=== PATIENT | female | born 1965 | race Caucasian/White ===

== ENCOUNTER 2023-03-23 09:31 | Outpatient (RCR) | payer OTHER, SELFPAY ==
[2023-03-23 10:13] LABS: Glucose - Point of Care 218 mg/dl (70-99)
[2023-03-23 10:55] LABS: Glucose - Point of Care 131 mg/dl (70-99)
== END 2023-03-23 23:59 | disposition home or self-care (01) ==
LOC: CRHB 09:31
PROVIDERS: ATTENDING PHYSICIAN Internal Medicine Cardiovascular Disease; FAMILY PHYSICIAN Internal Medicine
DX: I25.10 Atherosclerotic heart disease of native coronary artery without angina pectoris (principal); Z95.5 Presence of coronary angioplasty implant and graft
CPT/HCPCS: 82962; 93797; 93798

== ENCOUNTER 2023-04-26 09:57 | Day surgery (SDC) | payer OTHER, SELFPAY ==
[2023-04-26] VITALS (11 sets, daily range): BP systolic 126–163; BP diastolic 55–85; BMI 36.5
[2023-04-26] MEDS: NSS 500 IV (10:37)
[2023-04-26 10:45] LABS: Hematocrit 35.1 % (37.0-47.0); Hemoglobin 11.6 g/dL (12.0-16.0); Mean Corpuscular Hgb 28.6 pg (27.0-31.0); Mean Corpuscular Volume 86.5 fL (81.0-99.0); Mean Platelet Volume 10.2 fL (7.4-10.4); Platelet Count 325 10^3/uL (130-400); Red Blood Cell Count 4.06 10^6/uL (4.20-5.40); Red Cell Dist. Width 15.4 % (11.5-14.5); White Blood Cell Count 14.5 10^3/uL (4.8-10.8)
[2023-04-26 10:58] LABS: Blood Urea Nitrogen 66 mg/dl (7-17); Calcium 8.8 mg/dl (8.4-10.2); Carbon Dioxide 24 mmol/L (22-30); Chloride 100 mmol/L (98-107); Estimated Creatinine Clearance 29 ml/min; Glucose 187 mg/dl (70-99); Potassium 4.7 mmol/L (3.5-5.1); Sodium 135 mmol/L (135-145); eGFR 21.14
[2023-04-26 11:05] LABS: INR 1.05; PT 13.5 Sec (11.4-14.6)
[2023-04-26 11:06] LABS: APTT 30.2 Sec (23.4-35.0)
--- NOTE | 2023-04-26 12:37 | W.SUR.PREOP ---
Pre-Operative Surgical Note
-
I have examined this patient prior to the performance of the scheduled procedure.
The patient's condition is unchanged from the time of the current History and
Physical and the patient is able to undergo the scheduled procedure.
[2023-04-26 14:57] LABS: Glucose - Point of Care 120 mg/dl (70-99)
--- NOTE | 2023-04-26 16:12 | OR.RPT ---
Operative Report
Operative Report
PROCEDURE DATE: 04/26/2023
Preoperative diagnosis: End-stage renal disease.
Postoperative diagnosis: Same
Procedure: Left upper extremity fistulogram, angioplasty of perianastomotic stenosis.
Surgeon: Tio
Junk Removal Specialist: None
Complications: None
Anesthesia: General LMA
Fluoroscopy:
5.6 min
2 mGy
0.43 Gy.cm2
Indications for procedure:
Left upper extremity fistula none maturing well. Nearing needs for dialysis. Perianastomotic stenosis on ultrasound suspected. Flow volume is very low. Brought for fistulogram. Risk/benefits/alternatives all fully discussed. Patient understood
all wish to proceed.
Description of procedure:
Patient was identified, brought to the operating room. Placed on the table in the supine position. After the adequate administration of anesthesia, the patient was prepped and draped in the standard surgical fashion. A standard preoperative
timeout was undertaken and everybody was in agreement with the plan.
The left upper extremity fistula outflow vein was punctured in the proximal forearm in a peripheral facing direction. This was done with a micropuncture kit under direct duplex ultrasound guidance. I then advanced a 4 Romanian sheath over a 0.035
inch wire. Angiogram demonstrated patent fistula near the sheath, but there appeared to be some either spasm around the sheath or stenosis. There was filling of branching, but I could not see the proximal aspect of the fistula outflow vein filled.
Based on my ultrasound I could tell that the wire had traversed into a branch. Therefore I then used a glide catheter and a Glidewire and then was able to gain wire access into the main outflow portion of the fistula. Once I did this I performed
a fistulogram that demonstrated patent proximal outflow. At the anastomosis there appeared to be a possible stenosis, but it was slightly difficult to tell based on the overlying of the artery and the outflow vein. I tried different obliquities
but I could not open it up well. But there was some irregularity in the contour suggesting significant stenosis. Therefore, I then used a flopping on hydrophilic wire to try to gain wire access into the proximal radial artery. However was unable
to do so, but I was able to gain wire access into the outflow radial artery. Once I did this I exchanged for a 0.014 inch wire. I then performed balloon angioplasty with a 3 mm angioplasty balloon of the perianastomotic area. However my balloon
kept watermelon seeding into the vein. I therefore then tried a 2.5 mm balloon. Was able to get this to profile. I then repeated with the 3 mm balloon and got a better inflation, but still some watermelon seeding. I then advanced my glide
catheter again and performed a completion fistulogram that demonstrated good result at the anastomosis. But there was some arterial spasm in the outflow radial artery. Localized nitroglycerin was given in the radial artery via the catheter.
Completion angiogram demonstrated good result with good resolution of the vasospasm. At this point I felt it might be worthwhile to try to balloon the stenosis/vasospasm in the vicinity of the sheath. I therefore then punctured a large branch in
the forearm under direct duplex ultrasound guidance (the branch was confluent with the main outflow of the cephalic vein). When I try to advance my micropuncture wire, it kept hitting the sheath. It then ended up pushing the sheath out actually
and it appeared that it might have been within the sheath. Therefore and now that the sheath popped out, I had to hold pressure on that site. I therefore then pulled out my micropuncture needle and wire as well and now hold pressure on both sides.
At this point I felt that there is nothing further really to do. I did not think that there was truly a stenosis around the sheath but rather vasospasm. In addition I have concerns about the viability of this fistula based on the small size of
the vein and the very small radial artery. Manual pressure was applied and hemostasis was achieved. The patient tolerated the procedure well.
== END 2023-04-26 16:36 | disposition home or self-care (01) ==
LOC: CATH 09:57
PROVIDERS: ATTENDING PHYSICIAN Surgery Vascular Surgery; FAMILY PHYSICIAN Internal Medicine
DX: I77.0 Arteriovenous fistula, acquired (principal); I12.9 Hypertensive chronic kidney disease with stage 1 through stage 4 chronic kidney disease, or unspecified chronic kidney disease; E11.22 Type 2 diabetes mellitus with diabetic chronic kidney disease; E11.65 Type 2 diabetes mellitus with hyperglycemia; N18.4 Chronic kidney disease, stage 4 (severe); Z79.4 Long term (current) use of insulin; Z79.85 Long-term (current) use of injectable non-insulin antidiabetic drugs; E78.5 Hyperlipidemia, unspecified; I25.10 Atherosclerotic heart disease of native coronary artery without angina pectoris; Z95.5 Presence of coronary angioplasty implant and graft; Z95.810 Presence of automatic (implantable) cardiac defibrillator; G47.33 Obstructive sleep apnea (adult) (pediatric); Z79.82 Long term (current) use of aspirin; Z79.02 Long term (current) use of antithrombotics/antiplatelets
CPT/HCPCS: 36902; C1894; C1769; C1725; 76937; 80048; 82962; 85027; 85610; 85730; 86850; 86900; 86901; Q9967

== ENCOUNTER → 2023-05-06 13:56 | Outpatient (REF) | payer OTHER, SELFPAY | LOC: HWWDC 13:56 | PROVIDERS: ATTENDING PHYSICIAN Obstetrics & Gynecology; FAMILY PHYSICIAN Internal Medicine | DX: Z12.31 Encounter for screening mammogram for malignant neoplasm of breast (principal) | CPT/HCPCS: 77063; 77067 ==

== ENCOUNTER → 2023-05-18 13:49 | Outpatient (REF) | payer OTHER, SELFPAY | LOC: RAD 13:49 | PROVIDERS: ATTENDING PHYSICIAN Surgery Vascular Surgery; FAMILY PHYSICIAN Internal Medicine | DX: Z01.818 Encounter for other preprocedural examination (principal) | CPT/HCPCS: 93986 ==

== ENCOUNTER 2023-05-19 08:25 | Day surgery (SDC) | payer OTHER, SELFPAY ==
[2023-05-19] VITALS (12 sets, daily range): BP systolic 130–155; BP diastolic 52–73; BMI 35.5
[2023-05-19 09:09] LABS: Glucose - Point of Care 226 mg/dl (70-99)
[2023-05-19 09:11] LABS: Hematocrit 31.8 % (37.0-47.0); Hemoglobin 10.6 g/dL (12.0-16.0); Mean Corp Hgb Conc. 33.3 g/dL (33.0-37.0); Mean Corpuscular Hgb 28.6 pg (27.0-31.0); Mean Corpuscular Volume 85.9 fL (81.0-99.0); Platelet Count 336 10^3/uL (130-400); Red Cell Dist. Width 17.3 % (11.5-14.5); White Blood Cell Count 14.2 10^3/uL (4.8-10.8)
[2023-05-19 09:23] LABS: INR 1.07; PT 13.9 Sec (11.4-14.6)
[2023-05-19] MEDS: BACTROBAN NASAL 1 GRAM NASAL (09:24)
[2023-05-19] MEDS: PERIDEX 0.12% ORAL RINSE 15 ML PO (09:25)
[2023-05-19] MEDS: NSS 500 IV (09:25)
[2023-05-19 09:46] LABS: Blood Urea Nitrogen 85 mg/dl (7-17); Calcium 8.6 mg/dl (8.4-10.2); Carbon Dioxide 25 mmol/L (22-30); Chloride 98 mmol/L (98-107); Estimated Creatinine Clearance 27 ml/min; Glucose 241 mg/dl (70-99); Potassium 4.6 mmol/L (3.5-5.1); Sodium 134 mmol/L (135-145); eGFR 19.22
[2023-05-19] MEDS: DILAUDID 0.25 MG IV ×2 (12:40→12:56)
--- NOTE | 2023-05-19 13:11 | OR.RPT ---
Operative Report
Operative Report
PROCEDURE DATE: 05/19/2023
Preoperative diagnosis: End-stage renal disease approaching hemodialysis
Postoperative diagnosis: Same
Procedure: Left upper extremity brachiocephalic arteriovenous fistula creation
Surgeon: Tio
Chemical Machine Tender: VERNA Morris, required for all aspects of the procedure including traction/countertraction, assistance with following of suture line, assistance with closure.
Complications: None
Anesthesia: General
Indications for procedure:
Need for hemodialysis access. Prior creation of left radiocephalic arteriovenous fistula. Unable to get that to mature. 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 Discussed upper arm AV access creation. Discussed with
her that she does have extensive subcutaneous fatty tissue (morbidly obese) and therefore increased risk of needing additional procedures. Patient understood all wish to proceed.
Description of procedure:
Patient was identified brought to the operating room placed on the table in supine position. After the adequate administration of anesthesia and perioperative antibiotics she was prepped and draped in the standard surgical fashion. A standard
preoperative timeout was undertaken and everybody was in agreement the plan. A transverse incision was made in the proximal volar aspect of the forearm just distal to the antecubital fossa. This was carried through skin subcutaneous tissue. The
antecubital extension of the cephalic vein was identified and carefully dissected away from surrounding structures and great care to avoid any injury to structures. Any branches were ligated between silk ties and then divided. As such I was able
to mobilize a suitable length of cephalic vein. Once I done this I then deepen my dissection in the medial aspect of the incision site through the fascial layer. The brachial artery was carefully identified and carefully dissected away from
surrounding structures take great care to avoid injury to structures. I passed a vessel loop around proximally. Distally I identified the brachial bifurcation and both radial and ulnar branches were controlled with Vesseloops after careful
circumferential dissection. Next I gave the patient 3000 units of intravenous heparin. I then ligated the cephalic vein distally in my field with a silk tie and a clip. I then transected it. I distended under heparinized saline. It distended
very well. I marked the anterior surface under distention to avoid any kinking or twisting. The vein was suitable size but just to be sure I ran a 3 mm dilator through which passed without any difficulty whatsoever. Next I tightened my double
looped Vesseloops on the artery proximally and distally. I then made an arteriotomy with a [place] blade, and extended using a Moses scissor. I spatulated the cephalic vein and sewed an end to side anastomosis using a running 6-0 Prolene suture.
Prior to completing and tying down my suture line I backbled and forebled the [place] vie[place] artery. Next I released my bulldog clamp on the vein and then released my Vesseloops on the artery. There was an excellent thrill in the fistula. There was a
good dopplerable radial artery signal at the wrist in the radial artery. At this point I was very satisfied. I irrigated. I achieved and confirmed full hemostasis. I then closed in layers using 3-0 Vicryl deep dermal layer followed by 4-0
Monocryl subcuticular stitch. Dermabond was applied. The patient tolerated the procedure well.
[2023-05-19] MEDS: TYLENOL 650 MG PO (13:26)
[2023-05-19] MEDS: ROXICODONE 5 MG PO (13:27)
== END 2023-05-19 14:20 | disposition home or self-care (01) ==
LOC: CATH 08:25
PROVIDERS: ATTENDING PHYSICIAN Surgery Vascular Surgery; FAMILY PHYSICIAN Internal Medicine
DX: I13.2 Hypertensive heart and chronic kidney disease with heart failure and with stage 5 chronic kidney disease, or end stage renal disease (principal); N18.6 End stage renal disease; Z95.820 Peripheral vascular angioplasty status with implants and grafts; I25.10 Atherosclerotic heart disease of native coronary artery without angina pectoris; E11.319 Type 2 diabetes mellitus with unspecified diabetic retinopathy without macular edema; E11.22 Type 2 diabetes mellitus with diabetic chronic kidney disease; I50.30 Unspecified diastolic (congestive) heart failure; Z79.02 Long term (current) use of antithrombotics/antiplatelets; Z79.82 Long term (current) use of aspirin; Z79.52 Long term (current) use of systemic steroids; Z79.4 Long term (current) use of insulin
CPT/HCPCS: 36821; 80048; 82962; 85027; 85610; 85730; 86850; 86900; 86901

== ENCOUNTER 2023-05-22 14:37 | Emergency (ER) | payer OTHER, SELFPAY ==
[2023-05-22 14:40] VITALS: BP 160/76
[2023-05-22] MEDS: ZOFRAN 4 MG IV (15:43)
[2023-05-22] MEDS: MORPHINE SULFATE 4 MG IV (15:43)
[2023-05-22 15:48] LABS: % Basophils 0.8 % (0-2); % Eosinophils 5.1 % (0-6); % Immature Granulocytes 0.5 % (0-0.5); % Lymphocytes 20.6 % (20.5-51.1); % Monocytes 7.1 % (1.7-9.3); % Neutrophils 65.9 % (42.2-75.2); Absolute Basophils 0.1 10^3/uL (0-0.2); Absolute Eosinophils 0.8 10^3/uL (0-0.7); Absolute Immature Granulocytes 0.1 10^3/uL (0-0.05); Absolute Lymphocytes 3.2 10^3/uL (1.2-3.4); Absolute Monocytes 1.1 10^3/uL (0.1-0.6); Absolute Neutrophils 10.2 10^3/uL (1.4-6.5); Hematocrit 32.9 % (37.0-47.0); Hemoglobin 11.1 g/dL (12.0-16.0); Mean Corp Hgb Conc. 33.7 g/dL (33.0-37.0); Mean Corpuscular Hgb 29.1 pg (27.0-31.0); Mean Corpuscular Volume 86.4 fL (81.0-99.0); Mean Platelet Volume 9.8 fL (7.4-10.4); Nucleated Red Blood Cells % 0 %; Platelet Count 341 10^3/uL (130-400); Red Blood Cell Count 3.81 10^6/uL (4.20-5.40); Red Cell Dist. Width 18.9 % (11.5-14.5); White Blood Cell Count 15.4 10^3/uL (4.8-10.8)
--- NOTE | 2023-05-22 15:51 | ED.GENMED ---
History of Present Illness
General
Chief Complaint: Post Operative Problem(s)
Source: patient and records
Exam Limitations: none
Time Seen by Provider: 05/22/23 15:07
Nursing documentation reviewed up to this point in time: agreed with
Travel History
Have you had any contact with someone who has COVID-19?: No
Do you have any symptoms of coronavirus? Fever > 100 degrees, chills, cough, shortness of breath, sore throat, loss of taste or smell, muscle aches, or headache?: No
History of Present Illness
History of Present Illness:
58-year-old female CKD nearing dialysis patient of the local nephrology practice she had a failed fistula in the right distal forearm repeat surgery in the mid forearm by Dr. Figueroa 2 days ago send postop pain at the surgical site numbness tingling
into her hand and wrist no fever no drainage, no arm weakness
Past History
Past History
ED Past Medical History: CHF, GERD, HTN, Hypercholesterolemia, IDDM, Seizures and Other
ED Past Surgical History: Cardiac, Orthopedic and Other
Social History
Tobacco: Non-smoker
Alcohol: None
Personal:
Living: with family ([place] [facility] for rehab)
Review of Systems
Review of Systems
All Other Systems: Not applicable
Constitutional: Denies fever or fatigue
EENT: Reports no symptoms
Respiratory: Reports no symptoms
Cardiac: Reports no symptoms
ABD/GI: Reports no symptoms
: Reports no symptoms
Musculoskeletal: Reports muscle stiffness
Neurological: Reports numbness
Phy Exam
Physical Exam
Physical Exam:
Physical Exam
General: no apparent distress, not acutely ill
Heart: s1/s2 regular rate and rhythm, no murmur. equal radial pulses.
Lungs: no acute respiratory distress. clear bilaterally
Neuro: alert and oriented. no focal neurological deficits
Skin: no rash
Psychiatric: well kept. interactive and cooperative
Extremities: Left forearm swelling ecchymosis in the proximal portion of the surgical site no thrill mild subjective numbness in the hand and wrist no coolness to the hand
Course
Orders/Labs/Results
Orders:
Orders
05/22/23 15:35
Morphine Sulfate 4 mg IV NOW STA
Ondansetron Injectable [Zofran] 4 mg IV NOW STA
05/22/23 15:41
Basic Metabolic Panel Urgent
05/22/23 15:42
Complete Blood Count/With Diff Urgent
05/22/23 16:12
Hemodialysis Graft US [US Hemodialysis Graft] Urgent
Comment:
Reason For Exam: painpain
Abnormal Lab Results
05/22/23 05/22/23
15:41 15:42
WBC 15.4 H 10^3/uL
(4.8-10.8)
RBC 3.81 L 10^6/uL
(4.20-5.40)
Hgb 11.1 L g/dL
(12.0-16.0)
Hct 32.9 L %
(37.0-47.0)
RDW 18.9 H %
(11.5-14.5)
Abs Immat Gran (auto) 0.1 H 10^3/uL
(0-0.05)
Absolute Neuts (auto) 10.2 H 10^3/uL
(1.4-6.5)
Absolute Monos (auto) 1.1 H 10^3/uL
(0.1-0.6)
Absolute Eos (auto) 0.8 H 10^3/uL
(0-0.7)
BUN 74 H mg/dl
(7-17)
Creatinine 2.5 H mg/dL
(0.6-1.0)
Glucose 60 L mg/dl
(70-99)
05/22/23 15:42
05/22/23 15:41
Vital Signs
Initial and Last Documented VS:
Initial Vital Signs
Temp Pulse Resp BP Pulse Ox
97.9 F 74 16 160/76 100
05/22/23 14:40 05/22/23 14:40 05/22/23 14:40 05/22/23 14:40 05/22/23 14:40
Last Documented Vital Signs
Temp Pulse Resp BP Pulse Ox
97.9 F 74 16 160/76 100
05/22/23 14:40 05/22/23 14:40 05/22/23 14:40 05/22/23 14:40 05/22/23 14:40
MDM/Problems Addressed
Differential Diagnosis Includes:
Postop pain clot still
MDM/Problems Addressed:
AV fistula
Chronic conditions affecting care: Kidney disease
Acute Exacerbation and/or Progression of Chronic Illness: Kidney disease
*Critical Care Note
Total Time (30-74mins, 75-104mins- exclusive of procedures): Not Applicable
Update Note
Update Note:
Pictures clinical sent to on-call vascular surgery
ED Attending Note
-
Portions of this chart may have been created with voice recognition software.� Occasional wrong word or��sound alike� substitutions may have occurred due to the inherent limitations of voice recognition software.
Discharge Plan
Departure
Patient Disposition: Other
Date of Disposition: 05/22/23
Time of Disposition: 16:47
Patient with high blood pressure during this ER visit?: No
Condition: Good
Covid-19: Not Applicable
Discharge Problem:
Post-operative pain
Prescriptions:
No Action
cetirizine 10 MG tablet
10 mg PO HS
atorvastatin 80 MG tablet
80 mg PO HS
aspirin 81 MG tablet,delayed release (DR/EC)
81 mg PO DAILY
Patient Comments:
clopidogrel 75 MG tablet
75 mg PO DAILY
metoclopramide HCl 5 MG tablet
5 mg PO BID@0730,1630
Patient Comments:
PRIOR TO A MEAL TWO TIMES A DAY
ergocalciferol (vitamin D2) 50,000 UNITS capsule
50,000 units PO RUSS
Cequa 1 EACH dropperette
1 drp BOTH EYES BID
Entresto 49-51 mg Tablet
1 tab PO BID
carvedilol 25 mg Tablet
25 mg PO BID
furosemide [Lasix] 20 mg Tablet
40 mg PO DAILY
insulin aspart U-100 [Novolog FlexPen U-100 Insulin] 100 unit/mL (3 mL) Insulin Pen
24 unit SC MEALS
sodium bicarbonate 650 MG tablet
650 mg PO BID Qty: 60 0RF
hydralazine 25 mg Tablet
25 mg PO TID
isosorbide mononitrate 60 mg Tablet Extended Release 24 Hr
60 mg PO HS
furosemide 20 mg Tablet
20 mg PO 1500
Rx Instructions:
3pm daily
ferrous sulfate 325 mg (65 mg iron) Tablet,Delayed Release (Dr/Ec)
325 mg PO DAILY
ezetimibe 10 mg Tablet
10 mg PO DAILY
insulin glargine [Lantus Solostar U-100 Insulin] 100 unit/mL (3 mL) insulin pen
74 unit SC HS
Patient Comments:
pt took half does last night, 37 units
Rx Instructions:
37 units past night per instructions
Probiotic Blend 2 billion cell-50 mg Capsule
1 cap PO DAILY
Mounjaro 7.5 mg/0.5 mL Pen Injector
7.5 mg SC WE
valacyclovir 500 mg Tablet
500 mg PO TID
prednisolone
1 drp RIGHT EYE TID
oxycodone 5 mg tablet
5 mg PO Q8H PRN (Reason: moderate pain) Qty: 5 0RF
Referrals:
Maxime Santo MD [Family Provider] -
Interventions
Interventions:
*Risk Screen - Suicide Last Done: 05/22/23 14:43
*General Assessment Last Done: 05/22/23 14:43
*Neglect/Abuse Screening Last Done: 05/22/23 14:43
ED-Skin Assessment Last Done: 05/22/23 15:59
[2023-05-22 16:00] LABS: Blood Urea Nitrogen 74 mg/dl (7-17); Calcium 8.4 mg/dl (8.4-10.2); Carbon Dioxide 26 mmol/L (22-30); Chloride 100 mmol/L (98-107); Glucose 60 mg/dl (70-99); Sodium 136 mmol/L (135-145); eGFR 22.02
[2023-05-22 18:12] VITALS: BP 133/48
== END 2023-05-22 18:12 | disposition home or self-care (01) ==
LOC: EMR 14:37
PROVIDERS: EMERGENCY PHYSICIAN Emergency Medicine; FAMILY PHYSICIAN Internal Medicine
DX: G89.18 Other acute postprocedural pain (principal); I13.2 Hypertensive heart and chronic kidney disease with heart failure and with stage 5 chronic kidney disease, or end stage renal disease; I50.9 Heart failure, unspecified; E11.22 Type 2 diabetes mellitus with diabetic chronic kidney disease; N18.6 End stage renal disease; G40.909 Epilepsy, unspecified, not intractable, without status epilepticus; E78.00 Pure hypercholesterolemia, unspecified; K21.9 Gastro-esophageal reflux disease without esophagitis; Z99.2 Dependence on renal dialysis
CPT/HCPCS: 99284; 96374; 96375; 80048; 85025; 93990

== ENCOUNTER 2023-06-23 17:16 | Emergency (ER) | payer OTHER, SELFPAY ==
[2023-06-23 17:22] VITALS: BP 133/81; BMI 36.4
--- NOTE | 2023-06-23 18:37 | ED.GENMED ---
History of Present Illness
General
Chief Complaint: Cough
Time Seen by Provider: 06/23/23 18:37
Travel History
Have you had any contact with someone who has COVID-19?: No
Do you have any symptoms of coronavirus? Fever > 100 degrees, chills, cough, shortness of breath, sore throat, loss of taste or smell, muscle aches, or headache?: No
History of Present Illness
History of Present Illness:
HPI: Patient presents with a week worth of coughing with some degree of shortness of breath she was concerned because she has a history of congestive heart failure. She increased her Lasix dosing from 40 mg a.m. and 20 mg p.m. to 40 mg twice daily.
This has not helped much. She has not noticed much of a change in her weight. She uses CPAP at night. She feels that she has 'cold' contributing to symptoms
EXAM:
GENERAL: Appears somewhat chronically ill but in no distress, elevated BMI
HEENT: Moist oral mucosa
CARDIOVASCULAR: No murmurs, normal heart rate, regular rhythm, No chest wall tenderness
PULMONARY: No respiratory distress, breath sounds are clear and equal
ABDOMEN: Soft with no peritoneal signs, no tenderness
NEUROLOGIC: Excellent strength all extremities, no coordination deficits
PSYCHIATRIC: Appropriate mental status, normal insight and judgement
EXTREMITIES: Nontender, trace bilateral lower extremity edema, moves all extremities equally
SKIN: No rash, no lesions
TIME OF INITIAL ENCOUNTER: 6:40 PM
NUMBER AND COMPLEXITY OF PROBLEMS ADDRESSED AT THE ENCOUNTER
� Chronic conditions affecting care: CHF, CAD, high blood pressure, hyperlipidemia, has had low blood pressure, has ICD
� Acute Exacerbation and/or Progression of Chronic Illness: This is an acute problem
� Differential Diagnosis includes: Viral syndrome, exacerbation of CHF, reactive airway disease, ACS unlike
AMOUNT AND/OR COMPLEXITY OF DATA TO BE REVIEWED AND ANALYZED
� I performed an independent evaluation of and my interpretation is:
EKG: Sinus 80, IVCD
CT:
X-rays: I personally reviewed x-ray�device noted in the right anterior thorax, no significant pulmonary vascular congestion, cardiomegaly noted
Laboratory Studies: White count slightly elevated 11.3, hemoglobin is 10.4 which is near baseline, BUN 76, creatinine 2.9 which is slightly worse than prior, proBNP 1020 which is also near baseline
Other:
� Review of other/old records: I reviewed old records, the patient has history of ESRD approaching dialysis and had a fistula created this past April
� Clinical information was obtained by an independent historian: I spoke to her roommate that was present on reassessment�he feels that she is doing fairly well and does not need to be kept in the hospital
� Prescriptions/Medications Considered but not given: Considered antibiotics but patient declines
� Further testing considered but not performed:
RISK OF COMPLICATIONS AND/OR MORBIDITY OR MORTALITY OF PATIENT MANAGEMENT
� Social determinants of health affecting care: Lives at home
� Discussion with other providers:
� Escalation of care including admission/observation vs risk of discharge considered: Will try an IV dose of Lasix as well as a DuoNeb. Symptoms may be multifactorial. On reassessment at 9 PM, the patient does not feel that
better. She perseverates over the fact that she has a cough and cold symptoms. She thinks she may have gone into worsening heart failure however her BNP is near baseline, her lungs sound clear on exam and there is no significant lower extremity
edema. She already has oxygen at home. She has a prominent cough at times while in the ED. she says the cough is keeping her up at night. Will try Tessalon Perles prescription and albuterol for nebulizer that she has at home.
Past History
Past History
ED Past Medical History: CHF, GERD, HTN, Hypercholesterolemia, IDDM, Seizures and Other
ED Past Surgical History: Cardiac, Orthopedic and Other
Social History
Tobacco: Non-smoker
Alcohol: None
Personal:
Living: with family ([facility] for rehab)
Phy Exam
Physical Exam
Physical Exam:
See HPI
Course
Orders/Labs/Results
Orders:
Orders
06/23/23 17:26
EKG [Electrocardiogram (*1)] Urgent
Reason for Study: Chest Pain
06/23/23 17:27
EKG- Treatment ONCE
06/23/23 18:44
Furosemide [Lasix] 40 mg IV NOW STA
Ipratropium/Albuterol Sulfate [Duoneb] 3 ml INH R NOW ONE
CR Chest - 2 Views Urgent
Comment:
Reason For Exam: sob
06/23/23 19:08
COVID-19 Antigen Urgent
Source: Nasal Swab
Influenza A+B Rapid Molecular Urgent
DAISY Source: Nasal Swab
Specimen Description:
06/23/23 20:16
Complete Blood Count/With Diff Urgent
Comprehensive Metabolic Panel Urgent
Magnesium Urgent
NT-proBNP Urgent
Troponin I Urgent
Abnormal Lab Results
06/23/23
20:16
WBC 11.3 H 10^3/uL
(4.8-10.8)
RBC 3.46 L 10^6/uL
(4.20-5.40)
Hgb 10.4 L g/dL
(12.0-16.0)
Hct 30.7 L %
(37.0-47.0)
RDW 20.4 H %
(11.5-14.5)
Absolute Neuts (auto) 8.2 H 10^3/uL
(1.4-6.5)
Absolute Monos (auto) 0.7 H 10^3/uL
(0.1-0.6)
Lymphocytes % 16.3 L %
(20.5-51.1)
BUN 76 H mg/dl
(7-17)
Creatinine 2.9 H mg/dL
(0.6-1.0)
06/23/23 20:16
06/23/23 20:16
Vital Signs
Initial and Last Documented VS:
Initial Vital Signs
Temp Pulse Resp BP Pulse Ox
99.0 F 78 16 133/81 96
06/23/23 17:22 06/23/23 17:22 06/23/23 17:22 06/23/23 17:22 06/23/23 17:22
Last Documented Vital Signs
Temp Pulse Resp BP Pulse Ox
99.0 F 78 25 121/58 95
06/23/23 17:22 06/23/23 21:00 06/23/23 20:45 06/23/23 20:00 06/23/23 20:15
*Critical Care Note
Total Time (30-74mins, 75-104mins- exclusive of procedures): Not Applicable
ED Attending Note
-
Portions of this chart may have been created with voice recognition software.� Occasional wrong word or��sound alike� substitutions may have occurred due to the inherent limitations of voice recognition software.
Discharge Plan
Departure
Patient Disposition: Home (Routine Discharge)
Date of Disposition: 06/23/23
Time of Disposition: 21:17
Patient with high blood pressure during this ER visit?: Yes
Discharge Problem:
Shortness of breath
Instructions: Acute Bronchitis, Adult (DC), Heart Failure, Adult (DC), Cough, Adult (DC)
Prescriptions:
New
benzonatate 200 mg capsule
200 mg PO TID PRN (Reason: Cough) Qty: 10 0RF
albuterol sulfate 2.5 mg /3 mL (0.083 %) solution for nebulization
2.5 mg inhalation Q4H PRN (Reason: shortness of breath or wheezing) Qty: 90 0RF
No Action
cetirizine 10 MG tablet
10 mg PO HS
atorvastatin 80 MG tablet
80 mg PO HS
aspirin 81 MG tablet,delayed release (DR/EC)
81 mg PO DAILY
Patient Comments:
clopidogrel 75 MG tablet
75 mg PO DAILY
metoclopramide HCl 5 MG tablet
5 mg PO BID@0730,1630
Patient Comments:
PRIOR TO A MEAL TWO TIMES A DAY
ergocalciferol (vitamin D2) 50,000 UNITS capsule
50,000 units PO RUSS
Cequa 1 EACH dropperette
1 drp BOTH EYES BID
Entresto 49-51 mg Tablet
1 tab PO BID
carvedilol 25 mg Tablet
25 mg PO BID
furosemide [Lasix] 20 mg Tablet
40 mg PO DAILY
insulin aspart U-100 [Novolog FlexPen U-100 Insulin] 100 unit/mL (3 mL) Insulin Pen
24 unit SC MEALS
sodium bicarbonate 650 MG tablet
650 mg PO BID Qty: 60 0RF
hydralazine 25 mg Tablet
25 mg PO TID
isosorbide mononitrate 60 mg Tablet Extended Release 24 Hr
60 mg PO HS
furosemide 20 mg Tablet
20 mg PO 1500
Rx Instructions:
3pm daily
ferrous sulfate 325 mg (65 mg iron) Tablet,Delayed Release (Dr/Ec)
325 mg PO DAILY
ezetimibe 10 mg Tablet
10 mg PO DAILY
insulin glargine [Lantus Solostar U-100 Insulin] 100 unit/mL (3 mL) insulin pen
74 unit SC HS
Patient Comments:
pt took half does last night, 37 units
Rx Instructions:
37 units past night per instructions
Probiotic Blend 2 billion cell-50 mg Capsule
1 cap PO DAILY
Mounjaro 7.5 mg/0.5 mL Pen Injector
7.5 mg SC WE
valacyclovir 500 mg Tablet
500 mg PO TID
prednisolone
1 drp RIGHT EYE TID
oxycodone 5 mg tablet
5 mg PO Q8H PRN (Reason: moderate pain) Qty: 5 0RF
oxycodone 5 mg capsule
5 mg PO Q8H PRN (Reason: Pain) Qty: 10 0RF
Referrals:
Maxime Santo MD [Family Provider] -
Merrill Connor MD [Active] - Follow up in 2-3 days
Activity Restrictions/Additional Instructions:
We gave an additional IV dose of 40 mg of Lasix tonight. Your BNP level, the test that we commonly use for evaluating for heart failure) is very similar to prior. I sent prescriptions to your pharmacy for Tessalon Perles and for albuterol
nebulized treatments. Return here if worse. I also recommend you follow-up with Dr. Connor..
Interventions
Interventions:
*Risk Screen - Suicide Last Done: 06/23/23 17:22
*General Assessment Last Done: 06/23/23 21:30
*Neglect/Abuse Screening Last Done: 06/23/23 17:22
ED- Fall Risk Assessment Last Done: 06/23/23 21:30
*ED COVID-19 Vaccine History Last Done: 06/23/23 17:22
*Nursing Disposition Last Done: 06/23/23 21:30
ED- Pulmonary Assessment Last Done: 06/23/23 19:07
Discharge Date and Time
Discharge Date/Time: 06/23/23 21:35
Print Language: ROMANSH
[2023-06-23 19:07] VITALS: BMI 38.4
[2023-06-23 19:43] VITALS: BP 155/51
[2023-06-23] MEDS: DUONEB 3 ML INH (19:44)
[2023-06-23 20:00] VITALS: BP 121/58
[2023-06-23 20:00] LABS: COVID-19 Antigen Negative (Negative)
[2023-06-23] MEDS: LASIX 40 MG IV (20:17)
[2023-06-23 20:25] LABS: % Basophils 0.6 % (0-2); % Immature Granulocytes 0.4 % (0-0.5); % Lymphocytes 16.3 % (20.5-51.1); % Monocytes 6.1 % (1.7-9.3); % Neutrophils 72.6 % (42.2-75.2); Absolute Basophils 0.1 10^3/uL (0-0.2); Absolute Eosinophils 0.5 10^3/uL (0-0.7); Absolute Lymphocytes 1.8 10^3/uL (1.2-3.4); Absolute Monocytes 0.7 10^3/uL (0.1-0.6); Absolute Neutrophils 8.2 10^3/uL (1.4-6.5); Hematocrit 30.7 % (37.0-47.0); Hemoglobin 10.4 g/dL (12.0-16.0); Mean Corp Hgb Conc. 33.9 g/dL (33.0-37.0); Mean Corpuscular Hgb 30.1 pg (27.0-31.0); Mean Corpuscular Volume 88.7 fL (81.0-99.0); Mean Platelet Volume 9.7 fL (7.4-10.4); Nucleated Red Blood Cells % 0 %; Platelet Count 280 10^3/uL (130-400); Red Blood Cell Count 3.46 10^6/uL (4.20-5.40); Red Cell Dist. Width 20.4 % (11.5-14.5); White Blood Cell Count 11.3 10^3/uL (4.8-10.8)
[2023-06-23 20:44] LABS: ALT (SGPT) 14 U/L (0-35); AST (SGOT) 22 U/L (14-36); Albumin 4.6 g/dl (3.5-5.0); Alkaline Phosphatase 81 U/L (38-126); Blood Urea Nitrogen 76 mg/dl (7-17); Calcium 8.6 mg/dl (8.4-10.2); Carbon Dioxide 23 mmol/L (22-30); Chloride 104 mmol/L (98-107); Estimated Creatinine Clearance 26 ml/min; Glucose 75 mg/dl (70-99); Potassium 4.2 mmol/L (3.5-5.1); Sodium 138 mmol/L (135-145); Total Bilirubin 0.5 mg/dl (0.2-1.3); Total Protein 6.9 g/dl (6.3-8.2); eGFR 18.43
[2023-06-23 20:48] LABS: NT-proBNP 1020 pg/ml
== END 2023-06-23 21:35 | disposition home or self-care (01) ==
LOC: EMR 17:16
PROVIDERS: EMERGENCY PHYSICIAN Emergency Medicine; FAMILY PHYSICIAN Internal Medicine
DX: R06.02 Shortness of breath (principal); R05.9 Cough, unspecified; R60.0 Localized edema; Z11.52 Encounter for screening for COVID-19; I13.2 Hypertensive heart and chronic kidney disease with heart failure and with stage 5 chronic kidney disease, or end stage renal disease; I50.9 Heart failure, unspecified; E11.22 Type 2 diabetes mellitus with diabetic chronic kidney disease; N18.6 End stage renal disease; I25.10 Atherosclerotic heart disease of native coronary artery without angina pectoris; E78.00 Pure hypercholesterolemia, unspecified; K21.9 Gastro-esophageal reflux disease without esophagitis; R56.9 Unspecified convulsions; Z95.810 Presence of automatic (implantable) cardiac defibrillator; Z79.899 Other long term (current) drug therapy; Z79.82 Long term (current) use of aspirin; Z79.4 Long term (current) use of insulin; Z88.1 Allergy status to other antibiotic agents; Z88.8 Allergy status to other drugs, medicaments and biological substances
CPT/HCPCS: 99284; 96374; 94640; 71046; 80053; 83735; 83880; 84484; 85025; 87502; 87811; 93005

== ENCOUNTER → 2023-06-29 14:53 | Outpatient (REF) | payer OTHER, SELFPAY | LOC: RAD 14:53 | PROVIDERS: ATTENDING PHYSICIAN Physician Assistant; FAMILY PHYSICIAN Internal Medicine | DX: I77.0 Arteriovenous fistula, acquired (principal) | CPT/HCPCS: 93990 ==

== ENCOUNTER → 2023-07-15 13:36 | Outpatient (REF) | payer OTHER, SELFPAY | LOC: RAD 13:36 | PROVIDERS: ATTENDING PHYSICIAN Internal Medicine | DX: M25.562 Pain in left knee (principal) | CPT/HCPCS: 73564; 73610 ==

== ENCOUNTER → 2023-07-22 13:49 | Outpatient (REF) | payer OTHER, SELFPAY | LOC: HWRCS 13:49 | PROVIDERS: ATTENDING PHYSICIAN Nurse Practitioner Gerontology; FAMILY PHYSICIAN Internal Medicine | DX: R06.02 Shortness of breath (principal); I25.10 Atherosclerotic heart disease of native coronary artery without angina pectoris; I25.5 Ischemic cardiomyopathy; I27.20 Pulmonary hypertension, unspecified | CPT/HCPCS: 93306 ==

== ENCOUNTER → 2023-07-23 11:45 | Outpatient (REF) | payer OTHER, SELFPAY | LOC: RAD 11:45 | PROVIDERS: ATTENDING PHYSICIAN Internal Medicine | DX: L03.818 Cellulitis of other sites (principal) | CPT/HCPCS: 73630 ==

== ENCOUNTER 2023-08-18 05:53 | Day surgery (SDC) | payer OTHER, SELFPAY ==
--- NOTE | 2023-08-12 12:13 | PTCARENOTE ---
Patients 410 Ecg abnormal- reviewed by Dr. Frederick- no additional interventions required
[2023-08-18] VITALS (12 sets, daily range): BP systolic 90–146; BP diastolic 33–68; BMI 34.8
[2023-08-18] MEDS: BACTROBAN NASAL 1 GRAM NASAL (06:43)
[2023-08-18] MEDS: PERIDEX 0.12% ORAL RINSE 15 ML PO (06:44)
[2023-08-18 07:11] LABS: Hematocrit 35.1 % (37.0-47.0); Hemoglobin 11.5 g/dL (12.0-16.0); Mean Corp Hgb Conc. 32.8 g/dL (33.0-37.0); Mean Corpuscular Hgb 29.8 pg (27.0-31.0); Mean Corpuscular Volume 90.9 fL (81.0-99.0); Mean Platelet Volume 10.7 fL (7.4-10.4); Platelet Count 265 10^3/uL (130-400); Red Blood Cell Count 3.86 10^6/uL (4.20-5.40); Red Cell Dist. Width 16.4 % (11.5-14.5); White Blood Cell Count 10.8 10^3/uL (4.8-10.8)
[2023-08-18 07:19] LABS: Glucose - Point of Care 203 mg/dl (70-99)
[2023-08-18 07:25] LABS: INR 1.09; PT 13.9 Sec (11.4-14.6)
[2023-08-18 07:26] LABS: APTT 30.8 Sec (23.4-35.0)
[2023-08-18] MEDS: NOVOLOG vial 2 UNITS SC ×2 (07:29→11:03)
[2023-08-18 07:31] LABS: Blood Urea Nitrogen 65 mg/dl (7-17); Carbon Dioxide 26 mmol/L (22-30); Chloride 99 mmol/L (98-107); Glucose 190 mg/dl (70-99); Potassium 4.7 mmol/L (3.5-5.1); Sodium 136 mmol/L (135-145); eGFR 20.08
--- NOTE | 2023-08-18 10:50 | OR.RPT ---
Operative Report
Operative Report
PROCEDURE DATE: 08/18/2023
Preoperative diagnosis: 1. End-stage renal disease, approaching hemodialysis.
2. Status post left brachiocephalic arteriovenous fistula creation, poorly maturing fistula.
Postoperative diagnosis: Same
Procedure:
1. Exploration of the cephalic vein outflow of left upper extremity AV fistula.
2. Left upper extremity upper arm AV graft with Blythe Propaten 7 mm x 4 mm tapered graft.
Surgeon: Tio
Medical Receptionist Assistant: Ayana GILLESPIE, required for all aspects of procedure including assistance with traction/countertraction, following of suture line, assistance with closure.
Complications: None
Anesthesia: General
Indications for procedure:
Patient with end-stage renal disease, approaching hemodialysis. Radiocephalic fistula unable to get to mature. Subsequent left upper extremity brachiocephalic arteriovenous fistula created. However the depth appears to be significant in the
fistula. In addition the proximal outflow vein had excellent flow volumes, but they dropped off more distally. Therefore patient brought for revision with possible superficialization of the fistula, possible graft placement.
Risk/benefits/alternatives all fully discussed. Patient understood all wish to proceed.
Description of procedure:
Patient was identified brought to the operating room placed on the table in supine position. After the adequate administration of anesthesia she was prepped and draped in the standard surgical fashion. A standard preoperative timeout was
undertaken and everybody was in agreement the plan. I made a longitudinal incision in the distal upper arm overlying the outflow cephalic vein just proximal of the antecubital fossa. I had examined this with an ultrasound in the operating room and
it demonstrated that the vein was patent and looked well but there was a connection/branch to the basilic vein quite proximally. Therefore I dissected through the subcutaneous tissue to the level of the cephalic vein and identified that confluence
with the basilic vein. Next I dissected the cephalic vein more distally (more centrally) within my incision site. I noted significant tortuosity. And now the vein actually became severely stenotic. It was very small. It was thin-walled as well.
I felt that this was not usable. I therefore then ligated the vein here between silk ties and then divided it. Now I was hoping to try to use the basilic vein since the fistula now continued continuously with the basilic vein. Before making a
longer incision to expose the basilic vein and superficial lysed, I looked with an ultrasound and there was an area just proximal to the antecubital fossa where the basilic vein had significantly narrowed. In addition I noted the depth was very
deep and her arm was morbidly obese. And therefore I was concerned about wound infection issues, as well as concern about the stenotic area basilic vein. At this point I felt the safest thing and most efficient thing would be creation of a graft.
I felt that I could use the outflow vein that I had exposed in the distal upper arm. There is an excellent thrill in that. That would be my inflow. I now made a longitudinal incision in the medial proximal upper arm near the axilla. This was
carried through the skin subcutaneous tissue. There is significant subcutaneous tissue depth. I finally was able to identify the deep vein. I was able to carefully circumferentially dissected away from surrounding structures to great care to
avoid any injury to structures. I passed a vessel loop around proximally distally. Now I used a Bernabe tunneler to create a subcutaneous tunnel between the 2 incision sites. I then passed a Blythe Propaten tapered 7 mm x 4 mm graft and passed it
through the tunnel. (Passed with the 4 mm and at the arterial/proximal anastomotic site). I gave the patient 5000 units of intravenous heparin. I then clamped the proximal outflow vein (just distal to the anastomosis which I do not exposed). I
passed a vessel loop distally which I double looped and tightened. I then made a venotomy with an 11 blade and extended using a Moses scissor. I then beveled the 4 mm end of the graft and sewed an end to side running anastomosis using a Blythe CV 6
suture. I completed and tied down my suture line. Next I released flow in the la posta vein. There is good thrill into the graft. The graft distally had been clamped. At this point I ligated the basilic vein distal to the anastomosis so as to
prevent competitive flow. This was done with a silk tie.
I now turned my attention to the proximal upper arm incision where the 7 mm the graft had been tunneled through. I now made a venotomy after tightening my double looped Vesseloops on the deep vein. This was done with an 11 blade and extended using
a Moses scissor. I then beveled the 7 mm end of the graft and sewed an end to side anastomosis using a running Blythe CV 6 suture. Prior to completing and tying down my suture line I backbled the la posta system, I flushed out the graft. I then
completed and tied down my suture line. Next I released flow in the la posta system and released my graft clamp. There is a good thrill into the fistula into the graft at the arterial/anastomotic side. There is an excellent Doppler signal in the
outflow vein distal to the anastomosis. At this point I was very satisfied. I then meticulously achieved hemostasis. Protamine was given to reverse the heparin. I then confirmed hemostasis. We then irrigated and closed in layers using 3-0
Vicryl followed by 4 Monocryl subcuticular stitch. Dermabond was applied. The patient tolerated procedure well. Of note she had a palpable left radial pulse upon completion.
[2023-08-18 10:52] LABS: Glucose - Point of Care 199 mg/dl (70-99)
[2023-08-18] MEDS: DILAUDID 0.25 MG IV ×2 (11:03→11:21)
[2023-08-18] MEDS: NSS 500 IV (11:16)
[2023-08-18] MEDS: NOVOLOG FLEXPEN-MODERATE RESISTANCE 2 UNITS SC (14:31)
[2023-08-18] MEDS: APRESOLINE 25 MG PO ×2 (15:55→21:25)
[2023-08-18] MEDS: LASIX 20 MG PO (15:55)
[2023-08-18 16:55] LABS: Glucose - Point of Care 300 mg/dl (70-99)
[2023-08-18] MEDS: NOVOLOG FLEXPEN-MODERATE RESISTANCE 7 UNITS SC (17:09)
[2023-08-18] MEDS: ROXICODONE 5 MG PO (18:32)
[2023-08-18] MEDS: FLOVENT 44 MCG INHALER 2 PUFF INH (19:23)
[2023-08-18] MEDS: ENTRESTO 49 MG/51 MG 1 TAB PO (20:48)
[2023-08-18] MEDS: RESTASIS 0.05% OPHTHALMIC EMULSION 1 DROPS BOTH EYES (20:49)
[2023-08-18] MEDS: COREG 25 MG PO (20:49)
[2023-08-18] MEDS: SODIUM BICARBONATE 650 MG PO (20:49)
[2023-08-18] MEDS: TYLENOL 650 MG PO (20:55)
[2023-08-18 21:06] LABS: Glucose - Point of Care 367 mg/dl (70-99)
[2023-08-18] MEDS: PRED FORTE 1% EYE DROPS 1 DROP RIGHT EYE (21:24)
[2023-08-18] MEDS: LIPITOR 80 MG PO (21:24)
[2023-08-18] MEDS: IMDUR (EXTENDED RELEASE) 60 MG PO (21:25)
[2023-08-18] MEDS: ZYRTEC 10 MG PO (21:26)
[2023-08-18] MEDS: LANTUS 0.739999999999999991 UNITS SC (21:27)
[2023-08-19] MEDS: ROXICODONE 5 MG PO ×2 (02:34→10:30)
[2023-08-19 03:20] VITALS: BP 159/70
[2023-08-19] MEDS: TYLENOL 650 MG PO (06:01)
[2023-08-19 06:18] LABS: Hematocrit 34.4 % (37.0-47.0); Hemoglobin 11.2 g/dL (12.0-16.0); Mean Corp Hgb Conc. 32.6 g/dL (33.0-37.0); Mean Corpuscular Hgb 29.8 pg (27.0-31.0); Mean Corpuscular Volume 91.5 fL (81.0-99.0); Platelet Count 241 10^3/uL (130-400); Red Blood Cell Count 3.76 10^6/uL (4.20-5.40); Red Cell Dist. Width 15.9 % (11.5-14.5); White Blood Cell Count 17.2 10^3/uL (4.8-10.8)
[2023-08-19 06:46] LABS: Blood Urea Nitrogen 66 mg/dl (7-17); Calcium 8.7 mg/dl (8.4-10.2); Carbon Dioxide 22 mmol/L (22-30); Chloride 99 mmol/L (98-107); Estimated Creatinine Clearance 31 ml/min; Glucose 262 mg/dl (70-99); Potassium 4.9 mmol/L (3.5-5.1); Sodium 134 mmol/L (135-145); eGFR 24.34
--- NOTE | 2023-08-19 07:29 | W.PN.VS ---
Addendum entered and electronically signed by Justen iKnsey MD 08/19/23 07:44:
Seen and examined with VERNA Piña. Agree with findings as noted below. No significant new complaints except incisional soreness. Left upper extremity is soft. Ecchymotic at the tunnel site. However no hematoma noted. Incisions both clean dry
and intact. Good thrill through graft best palpated near antecubital fossa. Hand is pink and warm and well-perfused. Plan/as discussed and noted below.
Original Note:
Today's Communication / Plan
-
Seen and assessed with Dr. Kinsey
Assessment/Plan
-
POD 1 left upper extremity fistula creation with graft
Plan:
-Discharge today
Subjective Data
-
Date of Service: August 19, 2023
Pt seen at bedside this am with Dr Kinsey. Pt complains of moderate discomfort at incisional site/tunnel site. No events overnight
Objective Data
-
Vital Signs
Temp Pulse Resp BP Pulse Ox
97.2 F 88 18 159/70 97
08/19/23 03:20 08/19/23 03:20 08/19/23 03:20 08/19/23 03:20 08/19/23 03:20
Intake and Output
08/18/23 08/19/23 08/20/23
06:59 06:59 06:59
Intake Total 2270 / 2270
Balance 2270 / 2270
Intake:
Oral fluids 2120 / 2120
IV fluids (Total) 150 / 150
Nss 500 ml @ 40 mls/hr IV . 150 / 150
[id number] NANDA Rx#:[id number]
Other:
Number of approximated MODERATE 3
amounts of urine
Lab Results
08/19/23 05:53
08/19/23 05:53
Calcium 8.7 mg/dl (8.4-10.2) 08/19/23 05:53
Physical Exam
-
AAOx3
No tachypnea
No tachycardia
Left upper extremity soft, ecchymotic, incisional sites clean dry and intact and well-approximated
Left hand warm, + radial pulse
+ Thrill
[2023-08-19] MEDS: ENTRESTO 49 MG/51 MG 1 TAB PO (07:42)
[2023-08-19] MEDS: MIRALAX 17 GRAMS PO (07:42)
[2023-08-19] MEDS: ZETIA 10 MG PO (07:42)
[2023-08-19] MEDS: LASIX 40 MG PO (07:42)
[2023-08-19] MEDS: ZYLOPRIM 50 MG PO (07:42)
[2023-08-19 07:43] VITALS: BP 93/62
[2023-08-19] MEDS: RESTASIS 0.05% OPHTHALMIC EMULSION 1 DROPS BOTH EYES (07:43)
[2023-08-19] MEDS: APRESOLINE 25 MG PO (07:43)
[2023-08-19] MEDS: PLAVIX 75 MG PO (07:43)
[2023-08-19] MEDS: SODIUM BICARBONATE 650 MG PO (07:43)
[2023-08-19] MEDS: PRED FORTE 1% EYE DROPS 1 DROP RIGHT EYE (07:43)
[2023-08-19] MEDS: VISBIOME 1 CAP PO (07:43)
[2023-08-19] MEDS: COREG 25 MG PO (07:43)
[2023-08-19] MEDS: ASPIR LOW (ENTERIC COATED) 81 MG PO (07:43)
[2023-08-19] MEDS: VALTREX 500 MG PO (07:43)
[2023-08-19] MEDS: REGLAN 5 MG PO (07:43)
[2023-08-19] MEDS: HEPARIN 5000 UNITS SC (07:44)
[2023-08-19 07:45] VITALS: BMI 34.3
[2023-08-19 07:50] LABS: Glucose - Point of Care 246 mg/dl (70-99)
[2023-08-19] MEDS: NOVOLOG FLEXPEN-HIGH RESISTANCE 4 UNITS SC (07:54)
[2023-08-19] MEDS: FLOVENT 44 MCG INHALER 2 PUFF INH (07:58)
--- NOTE | 2023-08-19 10:20 | W.[place]-PDMP ---
[place]-PDMP
-
Checked the [place]- Prescription Drug Monitoring Program website, no red flags identified; safe to proceed with prescription.
--- NOTE | 2023-08-19 10:21 | W.DS.TRANS ---
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
-
Discharge Instructions:
Discharge Diagnosis/Procedures AV fistula creation with graft
Diet As tolerated
Activity No strenuous activity
Driving Restrictions No driving for 1 week
Bathing Restrictions OK to Shower
Instructions:
Stand-Alone Forms: DC Instr - Vascular OR
Changes to Home Medications: Yes
Discharge Medications:
DC Medications w/original date entered in [employer]
cetirizine 10 mg tablet 10 mg PO HS Allergies 07/02/14
aspirin 81 mg tablet,delayed release 81 mg PO DAILY Blood clot prevention/tx 07/17/16
atorvastatin 80 mg tablet 80 mg PO HS High cholesterol 07/17/16
clopidogrel 75 mg tablet 75 mg PO DAILY Blood clot prevention/tx 04/26/20
ergocalciferol (vitamin D2) 1,250 mcg (50,000 unit) capsule 50,000 units PO RUSS Supplement 04/26/20
metoclopramide HCl 5 mg tablet 5 mg PO BID@0730,1630 Gastrointestinal issue 04/26/20
cyclosporine 0.09 % eye drops in a dropperette (Cequa) 1 drp BOTH EYES BID Eye condition 08/26/21
carvedilol 25 mg tablet 25 mg PO BID Blood pressure 09/23/21
sacubitril 49 mg-valsartan 51 mg tablet (Entresto) 1 tab PO BID Heart Failure 09/23/21
furosemide 20 mg tablet (Lasix) 40 mg PO DAILY Fluid retention/Swelling 12/05/21
insulin aspart U-100 100 unit/mL (3 mL) subcutaneous pen (Novolog FlexPen U-100 Insulin aspart) 24 unit SC MEALS Diabetes 12/05/21
sodium bicarbonate 650 mg tablet 650 mg PO BID Gastrointestinal issue #60 tabs 12/11/21
L.acidophil-L.casei-B.bifid-B.longum-FOS 2 billion cell-50 mg capsule (Probiotic Blend) 1 cap PO DAILY probiotic 03/18/23
ezetimibe 10 mg tablet 10 mg PO DAILY High Cholesterol 03/18/23
ferrous sulfate 325 mg (65 mg iron) tablet,delayed release 325 mg PO 1500 Supplement 03/18/23
furosemide 20 mg tablet 20 mg PO 1500 Fluid Retention/Swelling 03/18/23
hydralazine 25 mg tablet 25 mg PO TID Blood Pressure 03/18/23
insulin glargine 100 unit/mL (3 mL) subcutaneous pen (Lantus Solostar U-100 Insulin) 74 unit SC HS Diabetes 03/18/23
isosorbide mononitrate 60 mg tablet,extended release 24 hr 60 mg PO HS Heart Disease/Condition 03/18/23
tirzepatide 7.5 mg/0.5 mL subcutaneous pen injector (Mounjaro) 7.5 mg SC TH Diabetes 04/23/23
valacyclovir 500 mg tablet 500 mg PO BID viral infection 05/10/23
allopurinol 100 mg tablet 50 mg PO DAILY Gout 08/11/23
budesonide 180 mcg/actuation breath activated powder inhaler (Pulmicort Flexhaler) 1 inh inhalation BID Lung/Breathing Issues 08/11/23
polyethylene glycol 3350 17 gram oral powder packet (Miralax) 17 g PO DAILY Constipation 08/11/23
prednisolone acetate (PF) 1 % eye drops,suspension 1 drp RIGHT EYE BID Eye Condition 08/11/23
oxycodone 5 mg tablet 5 mg PO Q4HPRN PRN moderate pain 7 days #42 tabs 08/19/23
Home Medication Changes
Oxycodone added for pain management x 7 days
Pending Results: No
--- NOTE | 2023-08-19 10:45 | CM ---
Met with pt at bedside
Pt lives with roommates in a ranch style home
Independent with ADL's
DME - rolling walker, cane - not using; oxygen, CPAP - uses at bedtime
SNF - [facility] in past
HH - [facility] in past
Has ride at d/c
PCP - Dr Calli Santo
Pharm - [facility]
Plan - anticipate home no needs
[2023-08-19 11:39] VITALS: BP 130/61
[2023-08-19] MEDS: NOVOLOG FLEXPEN-HIGH RESISTANCE SC (11:39)
== END 2023-08-19 12:06 | disposition home or self-care (01) ==
LOC: CATH 05:53
PROVIDERS: Nurse Practitioner; ATTENDING PHYSICIAN Surgery Vascular Surgery; FAMILY PHYSICIAN Internal Medicine; OTHER PHYSICIAN Internal Medicine Cardiovascular Disease
DX: T82.898A Other specified complication of vascular prosthetic devices, implants and grafts, initial encounter (principal); Y83.2 Surgical operation with anastomosis, bypass or graft as the cause of abnormal reaction of the patient, or of later complication, without mention of misadventure at the time of the procedure; I13.11 Hypertensive heart and chronic kidney disease without heart failure, with stage 5 chronic kidney disease, or end stage renal disease; E11.22 Type 2 diabetes mellitus with diabetic chronic kidney disease; N18.6 End stage renal disease; Z79.4 Long term (current) use of insulin; Z79.02 Long term (current) use of antithrombotics/antiplatelets; Z79.82 Long term (current) use of aspirin
CPT/HCPCS: 36832; 80048; 82962; 85027; 85610; 85730; 86850; 86900; 86901; 94640; 94660; C1768

== ENCOUNTER → 2023-09-13 08:45 | Outpatient (REF) | payer OTHER, SELFPAY | LOC: RAD 08:45 | PROVIDERS: ATTENDING PHYSICIAN Surgery Vascular Surgery; FAMILY PHYSICIAN Internal Medicine | DX: I73.9 Peripheral vascular disease, unspecified (principal); I77.0 Arteriovenous fistula, acquired | CPT/HCPCS: 93922; 93925; 93990 ==

== ENCOUNTER 2024-01-26 06:14 | Day surgery (SDC) | payer OTHER, SELFPAY ==
--- NOTE | 2024-01-21 16:03 | PTCARENOTE ---
Pt last took 10mg Mounjaro SC on 01/[address] Whitley notified of this, no action needed. Surgery ok to proceed as scheduled.
[2024-01-26] MEDS: ALCAINE 0.5% EYE DROPS 1 DROP OPHTH (06:23)
[2024-01-26] MEDS: MYDRIACYL 1 DROP OPHTH (06:23)
[2024-01-26] MEDS: CYCLOGYL 1% EYE DROPS 1 DROP OPHTH (06:24)
[2024-01-26] MEDS: NEO-SYNEPHRINE 2.5% OPH SOL. 1 DROP OPHTH (06:24)
[2024-01-26] MEDS: POLYTRIM OPHTHALMIC SOLUTION 1 DROP OPHTH (06:24)
[2024-01-26] MEDS: ACUVAIL 1 DROPS OPHTH (06:24)
[2024-01-26] MEDS: PRED FORTE 1% EYE DROPS 1 DROP OPHTH (06:24)
[2024-01-26] MEDS: AKTEN OPHTHALMIC GEL 1 ML OPHTH (06:25)
[2024-01-26 06:27] VITALS: BMI 33.1
[2024-01-26 06:28] VITALS: BMI 33.1
[2024-01-26 06:29] VITALS: BP 116/52
[2024-01-26 06:36] LABS: Glucose - Point of Care 211 mg/dl (70-99)
[2024-01-26 07:59] VITALS: BP 112/51
[2024-01-26 08:20] VITALS: BP 106/46
== END 2024-01-26 08:30 | disposition home or self-care (01) ==
LOC: SDS 06:14
PROVIDERS: ATTENDING PHYSICIAN Ophthalmology
DX: H25.811 Combined forms of age-related cataract, right eye (principal)
CPT/HCPCS: 66984; 82962

== ENCOUNTER 2024-02-03 06:43 | Day surgery (SDC) | payer OTHER, SELFPAY ==
[2024-02-03 13:50] VITALS: BMI 32.8
[2024-02-03 13:51] VITALS: BMI 32.8
[2024-02-03] MEDS: MYDRIACYL 1 DROP OPHTH (13:54)
[2024-02-03] MEDS: NEO-SYNEPHRINE 2.5% OPH SOL. 1 DROP OPHTH (13:54)
[2024-02-03] MEDS: PRED FORTE 1% EYE DROPS 1 DROP OPHTH (13:54)
[2024-02-03] MEDS: POLYTRIM OPHTHALMIC SOLUTION 1 DROP OPHTH (13:54)
[2024-02-03] MEDS: ALCAINE 0.5% EYE DROPS 1 DROP OPHTH (13:54)
[2024-02-03] MEDS: ACUVAIL 1 DROPS OPHTH (13:55)
[2024-02-03] MEDS: CYCLOGYL 1% EYE DROPS 1 DROP OPHTH (13:55)
[2024-02-03] MEDS: AKTEN OPHTHALMIC GEL 1 ML OPHTH (13:55)
[2024-02-03 14:00] VITALS: BP 129/52
[2024-02-03 14:09] LABS: Glucose - Point of Care 197 mg/dl (70-99)
[2024-02-03 15:32] VITALS: BP 122/75
[2024-02-03 15:45] VITALS: BP 125/52
== END 2024-02-03 15:45 | disposition home or self-care (01) ==
LOC: SDS 06:43
PROVIDERS: ATTENDING PHYSICIAN Ophthalmology
DX: H25.812 Combined forms of age-related cataract, left eye (principal)
CPT/HCPCS: 66984; 82962

== ENCOUNTER → 2024-03-31 12:59 | Outpatient (REF) | payer OTHER, SELFPAY | LOC: RAD 12:59 | PROVIDERS: ATTENDING PHYSICIAN Surgery Vascular Surgery; FAMILY PHYSICIAN Internal Medicine | DX: I73.9 Peripheral vascular disease, unspecified (principal) | CPT/HCPCS: 93922; 93925 ==

== ENCOUNTER 2024-04-25 03:53 | Emergency (ER) | payer OTHER, SELFPAY ==
[2024-04-25 03:56] VITALS: BP 144/65
[2024-04-25 04:22] LABS: % Basophils 0.5 % (0-2); % Eosinophils 2.7 % (0-6); % Immature Granulocytes 0.5 % (0-0.5); % Lymphocytes 10.6 % (20.5-51.1); % Neutrophils 79.7 % (42.2-75.2); Absolute Basophils 0.1 10^3/uL (0-0.2); Absolute Eosinophils 0.5 10^3/uL (0-0.7); Absolute Immature Granulocytes 0.1 10^3/uL (0-0.05); Absolute Lymphocytes 1.8 10^3/uL (1.2-3.4); Absolute Neutrophils 13.8 10^3/uL (1.4-6.5); Hematocrit 33.2 % (37.0-47.0); Hemoglobin 10.8 g/dL (12.0-16.0); Mean Corp Hgb Conc. 32.5 g/dL (33.0-37.0); Mean Corpuscular Hgb 29.3 pg (27.0-31.0); Mean Corpuscular Volume 90.2 fL (81.0-99.0); Mean Platelet Volume 9.9 fL (7.4-10.4); Nucleated Red Blood Cells % 0.2 %; Platelet Count 318 10^3/uL (130-400); Red Blood Cell Count 3.68 10^6/uL (4.20-5.40); Red Cell Dist. Width 17.1 % (11.5-14.5); White Blood Cell Count 17.3 10^3/uL (4.8-10.8)
[2024-04-25 04:47] LABS: ALT (SGPT) 14 U/L (0-35); AST (SGOT) 20 U/L (14-36); Albumin 4.6 g/dl (3.5-5.0); Alkaline Phosphatase 125 U/L (38-126); Blood Urea Nitrogen 82 mg/dl (7-17); Calcium 9.2 mg/dl (8.4-10.2); Carbon Dioxide 20 mmol/L (22-30); Chloride 99 mmol/L (98-107); Glucose 157 mg/dl (70-99); Potassium 4.2 mmol/L (3.5-5.1); Sodium 137 mmol/L (135-145); Total Bilirubin 0.7 mg/dl (0.2-1.3); Total Protein 6.9 g/dl (6.3-8.2); eGFR 19.22
[2024-04-25 08:22] VITALS: BP 134/70
--- NOTE | 2024-04-25 09:04 | ED.GENMED ---
ED Provider Triage
<Martinez Barnes PA-C - Last Filed: 04/25/24 09:05>
-
Patient seen by provider in Triage?: Seen in Triage
Attestation: A medical screening examination has been initiated by a qualified medical provider. Based on the assessment performed at this time, it has been determined that an emergent medical condition may exist and the patient has been informed
that further medical evaluation and possible additional diagnostic testing may be needed. Time of exam 0900
HPI: 58-year-old female presents with right flank pain for the past 1 to 2 days. Began as bilateral low back pain but now in the right flank. No radiation of symptoms into the legs. Denies any dysuria or hematuria. Has history of CKD. No fevers
or chills, did have some nausea vomiting with pain increased today. Initial triage labs show leukocytosis as well as CKD, comparable to past labs. Will need urinalysis and CT to rule out renal stone
GENERAL: Alert , in no apparent distress
EYE: No visual abnormalities.
NECK: Trachea midline
ENT: No visible abnormalities.
LUNGS: No acute respiratory distress
NEUROLOGICAL: Alert and oriented
SKIN: Skin intact. No visible changes.
MUSCULOSKELETAL: Moving extremities normally
PSYCH: Normal and appropriate interaction.
This is a medical evaluation conducted in person to initiate diagnostic evaluation and provide initial therapeutics. Please see further documentation by the treating clinician.
History of Present Illness
<Martinez Barnes PA-C - Last Filed: 04/25/24 09:05>
General
Chief Complaint: Abdominal Pain
Time Seen by Provider: 04/25/24 09:15
<Chayito Avery PA-C - Last Filed: 04/25/24 12:54>
General
Source: patient
Exam Limitations: none
History of Present Illness
History of Present Illness:
58yoF with a history of CHF, coronary artery disease, insulin-dependent diabetes, hypertension, and CKD presenting for evaluation of back pain. She reports right lower back pain that began 4 days ago. Pain was initially dull but pain started to
worsen and become sharp around 7pm last night. Pain is worse with movements. She has not taken anything OTC for her symptoms. She denies any trauma or inciting incident. Pain is non-radiating. She is worried about her kidneys due to her history of
CKD. She denies any weakness or pain in the extremities. No fevers, chills, dysuria, hematuria, nausea, vomiting, saddle anesthesia, abdominal pain, chest pain, shortness of breath.
Past History
<Martinez Barnes PA-C - Last Filed: 04/25/24 09:05>
Past History
ED Past Medical History: CHF, GERD, HTN, Hypercholesterolemia, IDDM, Seizures and Other
ED Past Surgical History: Cardiac, Orthopedic and Other
Social History
Tobacco: Non-smoker
Alcohol: None
Personal:
Living: with family ([facility] for rehab)
Phy Exam
<Chayito Avery PA-C - Last Filed: 04/25/24 12:54>
General Physical Exam
General Presentation: well appearing and no apparent distress
General age: appears stated age
General Skin: warm and dry
General Habitus: normal
General Mental: alert
ENT Exam
ENT Exam: normocephalic
Cardiovascular Exam
Cardiovascular Exam: regular rate/rhythm
Pulmonary Exam
Pulmonary Exam: lungs clear, no respiratory distress, no rales, no crackles and no rhonchi
Gastrointestinal Exam
Gastrointestinal Exam: non tender, soft, non distended and no cva tenderness
Neurological Exam
Neurological Exam: alert
[place] Coma Scale
Eye Opening: Spontaneous
Verbal Response: Oriented
Motor Response: Obeys Commands
GCS Total Score: 15
Musculoskeletal Exam
Musculoskeletal Exam: other (No reproducible tenderness in the lumbar region. No skin changes. )
Skin Exam
Skin Exam: normal color and warm/dry
Psychiatric Exam
Psychiatric Exam: normal mood/affect
Course
<Martinez Barnes PA-C - Last Filed: 04/25/24 09:05>
Orders/Labs/Results
Orders:
Orders
04/25/24 04:10
CMP [Comprehensive Metabolic Panel] Urgent
Complete Blood Count/With Diff Urgent
04/25/24 08:22
Electrocardiogram (*1) Urgent
Reason for Study: Abdominal Pain
CT Abd/pel Without Iv Or Oral Urgent
Comment:
Reason For Exam: right sied pain, crf
EKG- Treatment ONCE
04/25/24 09:16
Urinalysis Reflex To Culture Urgent
Date Specimen was Collected: 04/25/24
Time Specimen was Collected: 09:15
Urine Microscopic Reflex Cult Urgent
Urine Culture Urgent
DAISY Source: U
Specimen Description:
Date Specimen was Collected: 04/25/24
Time Specimen was Collected: 09:15
04/25/24 09:47
Acetaminophen [Tylenol] 1,000 mg PO NOW STA
Lidocaine [Lidocaine 4% Patch] 1 patch TOPICAL ONCE ONE
Apply Lidocaine patch(s) to:: R lower back
Abnormal Lab Results
04/25/24 04/25/24
04:10 09:16
WBC 17.3 H 10^3/uL
(4.8-10.8)
RBC 3.68 L 10^6/uL
(4.20-5.40)
Hgb 10.8 L g/dL
(12.0-16.0)
Hct 33.2 L %
(37.0-47.0)
MCHC 32.5 L g/dL
(33.0-37.0)
RDW 17.1 H %
(11.5-14.5)
Abs Immat Gran (auto) 0.1 H 10^3/uL
(0-0.05)
Absolute Neuts (auto) 13.8 H 10^3/uL
(1.4-6.5)
Absolute Monos (auto) 1.0 H 10^3/uL
(0.1-0.6)
Neutrophils % 79.7 H %
(42.2-75.2)
Lymphocytes % 10.6 L %
(20.5-51.1)
Carbon Dioxide 20 L mmol/L
(22-30)
BUN 82 H mg/dl
(7-17)
Creatinine 2.8 H mg/dL
(0.6-1.0)
Glucose 157 H mg/dl
(70-99)
Leukocyte Esterase Rfl 2+ A
(Negative)
Urine WBC (Reflex) 11-15 A /HPF
(0-5)
Urine Bacteria (Reflex) Few A
(Negative)
Urine Glucose 3+ A
(Negative)
04/25/24 04:10
04/25/24 04:10
Vital Signs
Initial and Last Documented VS:
Initial Vital Signs
Temp Pulse Resp BP Pulse Ox
98.3 F 84 22 144/65 97
04/25/24 03:56 04/25/24 03:56 04/25/24 03:56 04/25/24 03:56 04/25/24 03:56
Last Documented Vital Signs
Temp Pulse Resp BP Pulse Ox
97.9 F 81 18 139/64 98
04/25/24 10:14 04/25/24 10:14 04/25/24 10:14 04/25/24 10:14 04/25/24 10:14
Leonellt;Chayito Avery PA-C - Last Filed: 04/25/24 12:54>
Orders/Labs/Results
Orders:
Orders
04/25/24 04:10
CMP [Comprehensive Metabolic Panel] Urgent
Complete Blood Count/With Diff Urgent
04/25/24 08:22
Electrocardiogram (*1) Urgent
Reason for Study: Abdominal Pain
CT Abd/pel Without Iv Or Oral Urgent
Comment:
Reason For Exam: right sied pain, crf
EKG- Treatment ONCE
04/25/24 09:16
Urinalysis Reflex To Culture Urgent
Date Specimen was Collected: 04/25/24
Time Specimen was Collected: 09:15
Urine Microscopic Reflex Cult Urgent
Urine Culture Urgent
DAISY Source: U
Specimen Description:
Date Specimen was Collected: 04/25/24
Time Specimen was Collected: 09:15
04/25/24 09:47
Acetaminophen [Tylenol] 1,000 mg PO NOW STA
Lidocaine [Lidocaine 4% Patch] 1 patch TOPICAL ONCE ONE
Apply Lidocaine patch(s) to:: R lower back
Abnormal Lab Results
04/25/24 04/25/24
04:10 09:16
WBC 17.3 H 10^3/uL
(4.8-10.8)
RBC 3.68 L 10^6/uL
(4.20-5.40)
Hgb 10.8 L g/dL
(12.0-16.0)
Hct 33.2 L %
(37.0-47.0)
MCHC 32.5 L g/dL
(33.0-37.0)
RDW 17.1 H %
(11.5-14.5)
Abs Immat Gran (auto) 0.1 H 10^3/uL
(0-0.05)
Absolute Neuts (auto) 13.8 H 10^3/uL
(1.4-6.5)
Absolute Monos (auto) 1.0 H 10^3/uL
(0.1-0.6)
Neutrophils % 79.7 H %
(42.2-75.2)
Lymphocytes % 10.6 L %
(20.5-51.1)
Carbon Dioxide 20 L mmol/L
(22-30)
BUN 82 H mg/dl
(7-17)
Creatinine 2.8 H mg/dL
(0.6-1.0)
Glucose 157 H mg/dl
(70-99)
Leukocyte Esterase Rfl 2+ A
(Negative)
Urine WBC (Reflex) 11-15 A /HPF
(0-5)
Urine Bacteria (Reflex) Few A
(Negative)
Urine Glucose 3+ A
(Negative)
04/25/24 04:10
04/25/24 04:10
Vital Signs
Initial and Last Documented VS:
Initial Vital Signs
Temp Pulse Resp BP Pulse Ox
98.3 F 84 22 144/65 97
04/25/24 03:56 04/25/24 03:56 04/25/24 03:56 04/25/24 03:56 04/25/24 03:56
Last Documented Vital Signs
Temp Pulse Resp BP Pulse Ox
97.9 F 81 18 139/64 98
04/25/24 10:14 04/25/24 10:14 04/25/24 10:14 04/25/24 10:14 04/25/24 10:14
Leonellt;Chayito Avery PA-C - Last Filed: 04/25/24 12:54>
MDM/Problems Addressed
Differential Diagnosis Includes:
58yoF here with R lower back pain x several days. Worsening since last night. No reported trauma. Worse with movement. She is mildly hypertensive with otherwise normal vitals. She is well appearing in no distress. No abdominal or CVA tenderness on
exam. Differential diagnosis includes but is not limited to: musculoskeletal, UTI, kidney stone
Initial ED plan: Labs obtained in triage. WBC 17.3 which appears to be chronic. Creatinine 2.8 which is stable from outpatient labs last week per patient. UA and CT abdomen pending. Tylenol and lidocaine patch ordered for pain.
<Chayito Avery PA-C - Last Filed: 04/25/24 12:54>
*Critical Care Note
Total Time (30-74mins, 75-104mins- exclusive of procedures): Not Applicable
<Chayito Avery PA-C - Last Filed: 04/25/24 12:54>
Update Note
Update Note:
UA with 2+ leukocytes although there are some squamous epithelial cells present suggesting contaminated sample. CT is negative for acute findings. No indication for hospitalization at this time. Upon further questioning, patient does report urinary
frequency for the past few days. Will cover with Keflex for possible UTI although pain seems more muscular based on history. Supportive care discussed. Advised close f/u with PCP and ED return precautions discussed. Patient in agreement with plan
and was discharged in stable condition.
ED Attending Note
<Martinez Barnes PA-C - Last Filed: 04/25/24 09:05>
-
Portions of this chart may have been created with voice recognition software.� Occasional wrong word or��sound alike� substitutions may have occurred due to the inherent limitations of voice recognition software.
Discharge Plan
Departure
Patient Disposition: Home (Routine Discharge)
Date of Disposition: 04/25/24
Time of Disposition: 10:37
Patient with high blood pressure during this ER visit?: Yes
Discharge Problem:
Acute right-sided low back pain, Urinary tract infection
Instructions: Back Pain
Prescriptions:
New
cephalexin 500 mg capsule
500 mg PO BID 7 Days Qty: 14 0RF
No Action
cetirizine 10 MG tablet
10 mg PO HS
atorvastatin 80 MG tablet
80 mg PO HS
aspirin 81 MG tablet,delayed release (DR/EC)
81 mg PO DAILY
Patient Comments:
clopidogrel 75 MG tablet
75 mg PO DAILY
metoclopramide HCl 5 MG tablet
5 mg PO BID@0730,1630
Patient Comments:
PRIOR TO A MEAL TWO TIMES A DAY
ergocalciferol (vitamin D2) 50,000 UNITS capsule
50,000 units PO RUSS
Cequa 1 EACH dropperette
1 drp BOTH EYES BID
Entresto 49-51 mg Tablet
1 tab PO BID
carvedilol 25 mg Tablet
25 mg PO BID
furosemide [Lasix] 20 mg Tablet
40 mg PO DAILY
insulin aspart U-100 [Novolog FlexPen U-100 Insulin] 100 unit/mL (3 mL) Insulin Pen
24 unit SC MEALS
sodium bicarbonate 650 MG tablet
650 mg PO BID Qty: 60 0RF
hydralazine 25 mg Tablet
25 mg PO TID
isosorbide mononitrate 60 mg Tablet Extended Release 24 Hr
60 mg PO HS
furosemide 20 mg Tablet
20 mg PO 1500
Rx Instructions:
3pm daily
ferrous sulfate 325 mg (65 mg iron) Tablet,Delayed Release (Dr/Ec)
325 mg PO MOWEFR
ezetimibe 10 mg Tablet
10 mg PO DAILY
insulin glargine [Lantus Solostar U-100 Insulin] 100 unit/mL (3 mL) insulin pen
74 unit SC HS
Patient Comments:
pt took half does last night, 37 units
Rx Instructions:
60 units past night per instructions
Probiotic Blend 2 billion cell-50 mg Capsule
1 cap PO DAILY
valacyclovir 500 mg Tablet
500 mg PO DAILY
allopurinol 100 mg Tablet
100 mg PO DAILY
prednisolone acetate (PF) 1 % Drops,Suspension
1 drp BOTH EYES BID
polyethylene glycol 3350 [Miralax] 17 gram Powder In Packet
17 g PO PRN PRN (Reason: constipation)
dapagliflozin propanediol [Farxiga] 10 mg Tablet
10 mg PO DAILY
Mounjaro 10 mg/0.5 mL Pen Injector
10 mg SC TH
tobramycin 0.3 % Drops
1 drp LEFT EYE TID
ketorolac 0.4 % Drops
1 drp OPHTHALMIC (EYE) QID
carboxymethylcellulose sodium [Refresh] 1 % Drops, Liquid Gel
1 drp OPHTHALMIC (EYE) BID
Referrals:
Maxime Snato MD [Family Provider] -
Activity Restrictions/Additional Instructions:
Take antibiotics as prescribed. Take Tylenol as needed for pain and apply heat to affected area.
Please follow-up with your family doctor. Return to the ER with any worsening symptoms or fevers.
Interventions
Interventions:
*Risk Screen - Suicide Last Done: 04/25/24 03:56
*General Assessment Last Done: 04/25/24 10:13
*Neglect/Abuse Screening Last Done: 04/25/24 03:56
ED- Fall Risk Assessment Last Done: 04/25/24 10:15
*Nursing Disposition Last Done: 04/25/24 10:57
XQ-Mqllmz-Qdiugnpfhe Assessment Last Done: 04/25/24 10:15
Discharge Date and Time
Discharge Date/Time: 04/25/24 11:01
Print Language: INDONESIAN
[2024-04-25 09:29] LABS: Urine Albumin Negative (Neg - Trace); Urine Bilirubin Negative (Negative); Urine Character Clear (Clear); Urine Color Yellow; Urine Glucose 3+ (Negative); Urine Ketone Negative (Negative); Urine Leukocyte 2+ (Negative); Urine Nitrite Negative (Negative); Urine Occult Blood Negative (Negative); Urine Urobilinogen Negative (Neg - 1+)
[2024-04-25 09:37] LABS: Urine Squamous Cell 21-25 /LPF (Few)
[2024-04-25 09:38] LABS: Urine Bacteria Few (Negative); Urine Hyaline Cast 0-2 /LPF (0-2); Urine Red Blood Cell 0-2 /HPF (0-2)
[2024-04-25 10:12] VITALS: BMI 32.3
[2024-04-25 10:14] VITALS: BP 139/64
[2024-04-25] MEDS: LIDOCAINE 4% PATCH 1 PATCH TOPICAL (10:16)
[2024-04-25] MEDS: TYLENOL 1000 MG PO (10:16)
== END 2024-04-25 11:01 | disposition home or self-care (01) ==
LOC: EMR 03:53
PROVIDERS: Emergency Medicine; Physician Assistant; EMERGENCY PHYSICIAN Emergency Medicine; FAMILY PHYSICIAN Internal Medicine
DX: N39.0 Urinary tract infection, site not specified (principal); M54.50 Low back pain, unspecified; I13.0 Hypertensive heart and chronic kidney disease with heart failure and stage 1 through stage 4 chronic kidney disease, or unspecified chronic kidney disease; I50.9 Heart failure, unspecified; N18.9 Chronic kidney disease, unspecified
CPT/HCPCS: 99285; 74176; 80053; 81003; 81015; 85025; 87086; 93005

== ENCOUNTER → 2024-05-16 13:03 | Outpatient (REF) | payer OTHER, SELFPAY | LOC: RAD 13:03 | PROVIDERS: ATTENDING PHYSICIAN Internal Medicine | DX: J45.31 Mild persistent asthma with (acute) exacerbation (principal); Z86.16 Personal history of COVID-19 | CPT/HCPCS: 71046 ==

== ENCOUNTER → 2024-06-05 13:52 | Outpatient (REF) | payer OTHER, SELFPAY | LOC: HWWDC 13:52 | PROVIDERS: ATTENDING PHYSICIAN Obstetrics & Gynecology; FAMILY PHYSICIAN Internal Medicine | DX: Z12.31 Encounter for screening mammogram for malignant neoplasm of breast (principal) | CPT/HCPCS: 77063; 77067 ==

== ENCOUNTER → 2024-10-05 12:41 | Outpatient (REF) | payer OTHER, SELFPAY | LOC: RAD 12:41 | PROVIDERS: ATTENDING PHYSICIAN Registered Nurse; FAMILY PHYSICIAN Internal Medicine | DX: I73.9 Peripheral vascular disease, unspecified (principal) | CPT/HCPCS: 93922; 93925 ==

== ENCOUNTER → 2024-10-18 08:13 | Outpatient (REF) | payer OTHER, SELFPAY | LOC: RCS 08:13 | PROVIDERS: ATTENDING PHYSICIAN Internal Medicine Cardiovascular Disease; FAMILY PHYSICIAN Internal Medicine | DX: E78.2 Mixed hyperlipidemia (principal) | CPT/HCPCS: 93306 ==

== ENCOUNTER 2024-11-19 10:13 | Emergency (ER) | payer MEDICARE, OTHER, SELFPAY ==
[2024-11-19 10:34] VITALS: BP 155/70
--- NOTE | 2024-11-19 11:11 | ED.MUSCINJ ---
HPI-Injury
General
Chief Complaint: Fall
Source: patient
Exam Limitations: none
Time Seen by Provider: 11/19/24 10:52
History of Present Illness-Injury
Initial Injury comments:
59-year-old female presents after mechanical fall. States the rug slipped out from underneath her and she fell onto her right side. She complains of right rib pain right pelvic pain and left calf pain. She did not hit her head. She denies neck
or back pain. She has been ambulatory since the fall. No other complaints at this time
Past History
Past History
ED Past Medical History: CHF, GERD, HTN, Hypercholesterolemia, IDDM, Seizures and Other
ED Past Surgical History: Cardiac, Orthopedic and Other
Social History
Tobacco: Non-smoker
Alcohol: None
Personal:
Living: with family ([facility] for rehab)
Phy Exam
Physical Exam
Physical Exam:
General: Well-appearing female no acute distress
HEENT normal cephalic atraumatic
Heart: Regular rate and rhythm
Lungs: Clear no wheeze
Musculoskeletal exam: Right anterior lateral ribs are tender without step-off or deformity. She is slightly tender over the right hip and iliac crest.
Injury Course
Orders/Labs/Results
Orders:
Orders
11/19/24 11:10
CR Hip - RT w/wo Pel 2-3 Vw* Urgent
Comment:
Reason For Exam: fall
Include a pelvis x-ray?: Yes
CR Leg Tibia/fibula Left 2 Vw Urgent
Comment:
Reason For Exam: fall
CR Ribs-right 3 Vw W/pa Chest* Urgent
Comment:
Reason For Exam: fall
MDM/Problems Addressed
Differential Diagnosis Includes:
X-rays of the right ribs right hip and left leg ordered after trauma
*Pulse Oximetry
SaO2: 96
Oxygen Mode of Delivery: Room air
Patient hypoxic: no
*Critical Care Note
Total Time (30-74mins, 75-104mins- exclusive of procedures): Not Applicable
Update Note
Update Note:
X-rays of the right ribs right hip and left leg were negative for acute traumatic injury. Suspect underlying contusions. No indication for admission. Stable for discharge
ED Attending Note
-
Portions of this chart may have been created with voice recognition software.� Occasional wrong word or��sound alike� substitutions may have occurred due to the inherent limitations of voice recognition software.
Discharge Plan
Departure
Patient Disposition: Home (Routine Discharge)
Date of Disposition: 11/19/24
Time of Disposition: 12:23
Patient with high blood pressure during this ER visit?: No
Discharge Problem:
Contusion
Instructions: Contusion (DC)
Prescriptions:
No Action
cetirizine 10 MG tablet
10 mg PO HS
atorvastatin 80 MG tablet
80 mg PO HS
aspirin 81 MG tablet,delayed release (DR/EC)
81 mg PO DAILY
Patient Comments:
clopidogrel 75 MG tablet
75 mg PO DAILY
metoclopramide HCl 5 MG tablet
5 mg PO BID@0730,1630
Patient Comments:
PRIOR TO A MEAL TWO TIMES A DAY
ergocalciferol (vitamin D2) 50,000 UNITS capsule
50,000 units PO RUSS
Cequa 1 EACH dropperette
1 drp BOTH EYES BID
Entresto 49-51 mg Tablet
1 tab PO BID
carvedilol 25 mg Tablet
25 mg PO BID
furosemide [Lasix] 20 mg Tablet
40 mg PO DAILY
insulin aspart U-100 [Novolog FlexPen U-100 Insulin] 100 unit/mL (3 mL) Insulin Pen
24 unit SC MEALS
sodium bicarbonate 650 MG tablet
650 mg PO BID Qty: 60 0RF
hydralazine 25 mg Tablet
25 mg PO TID
isosorbide mononitrate 60 mg Tablet Extended Release 24 Hr
60 mg PO HS
furosemide 20 mg Tablet
20 mg PO 1500
Rx Instructions:
3pm daily
ferrous sulfate 325 mg (65 mg iron) Tablet,Delayed Release (Dr/Ec)
325 mg PO MOWEFR
ezetimibe 10 mg Tablet
10 mg PO DAILY
insulin glargine [Lantus Solostar U-100 Insulin] 100 unit/mL (3 mL) insulin pen
74 unit SC HS
Patient Comments:
pt took half does last night, 37 units
Rx Instructions:
60 units past night per instructions
Probiotic Blend 2 billion cell-50 mg Capsule
1 cap PO DAILY
valacyclovir 500 mg Tablet
500 mg PO DAILY
allopurinol 100 mg Tablet
100 mg PO DAILY
prednisolone acetate (PF) 1 % Drops,Suspension
1 drp BOTH EYES BID
polyethylene glycol 3350 [Miralax] 17 gram Powder In Packet
17 g PO PRN PRN (Reason: constipation)
dapagliflozin propanediol [Farxiga] 10 mg Tablet
10 mg PO DAILY
Mounjaro 10 mg/0.5 mL Pen Injector
10 mg SC TH
tobramycin 0.3 % Drops
1 drp LEFT EYE TID
ketorolac 0.4 % Drops
1 drp OPHTHALMIC (EYE) QID
carboxymethylcellulose sodium [Refresh] 1 % Drops, Liquid Gel
1 drp OPHTHALMIC (EYE) BID
cephalexin 500 mg capsule
500 mg PO BID 7 Days Qty: 14 0RF
Referrals:
Maxime Santo MD [Family Provider, Internal Medicine]
Activity Restrictions/Additional Instructions:
Rest. Use ibuprofen or Tylenol for pain. Return if worse otherwise follow-up with your doctor
Interventions
Interventions:
*Risk Screen - Suicide Last Done: 11/19/24 10:34
*General Assessment Last Done: 11/19/24 10:34
*Neglect/Abuse Screening Last Done: 11/19/24 10:34
Discharge Date and Time
Print Language: MALTESE
== END 2024-11-19 12:37 | disposition home or self-care (01) ==
LOC: EMR 10:13
PROVIDERS: EMERGENCY PHYSICIAN Emergency Medicine; FAMILY PHYSICIAN Internal Medicine
DX: S70.01XA Contusion of right hip, initial encounter (principal); S80.12XA Contusion of left lower leg, initial encounter; E10.9 Type 1 diabetes mellitus without complications; I11.0 Hypertensive heart disease with heart failure; I50.9 Heart failure, unspecified; E78.00 Pure hypercholesterolemia, unspecified; K21.9 Gastro-esophageal reflux disease without esophagitis; W01.0XXA Fall on same level from slipping, tripping and stumbling without subsequent striking against object, initial encounter; Z79.02 Long term (current) use of antithrombotics/antiplatelets; Z79.4 Long term (current) use of insulin; Z79.85 Long-term (current) use of injectable non-insulin antidiabetic drugs
CPT/HCPCS: 99283; 71101; 73502; 73590